=== PATIENT | male | born 1960 | race Caucasian/White ===

== ENCOUNTER 2016-11-13 19:10 | Inpatient (IN) | payer OTHER ==
[~2016-11-13] VITALS: Ht 170.2 cm; Wt 75.0 kg
[~2016-11-13 19:10] MED LIST: LEVAQUIN750 MG PO; NAPROSYN375 MG PO; NAPROXEN500 MG PO
[2016-11-13 19:55] LABS: EOSINOPHIL (%) 1.1 % (0-5); EOSINOPHIL COUNT 0.1 K/uL (0-0.3); HEMATOCRIT 43.4 % (38.0-50.0); IMMATURE GRANULOCYTE (%) 0.5 % (0.0-0.7); IMMATURE GRANULOCYTE COUNT 0.1 K/uL; INSTRUMENT ABS NEUTROPHIL CT 8.5 K/uL; LYMPHOCYTE COUNT 1.8 K/uL (1.0-2.8); MCHC 34.3 G/DL (30.0-36.0); MCV 96.2 FL (86-99); MONOCYTE (%) 11.2 % (3-12); MONOCYTE COUNT 1.3 K/uL (0-0.8); NEUTROPHIL (%) 71.8 % (45-76); NEUTROPHIL COUNT 8.5 K/uL (1.8-6.4); PLATELET COUNT 280 K/uL (156-360); RBC DIS.WIDTH-CV 12.3 % (11.8-14.6); RBC DIS.WIDTH-SD 43.6 % (39-53); RED BLOOD COUNT 4.51 M/uL (4.00-5.50); WHITE BLOOD COUNT 11.8 K/uL (4.1-10.2)
[2016-11-13 20:05] LABS: CHLORIDE 101 mEq/L (99-109); POTASSIUM 3.7 mEq/L (3.7-5.4); SODIUM 137 mEq/L (136-147)
[2016-11-13 20:06] LABS: GLUCOSE 131 mg/dL (70-99)
[2016-11-13 20:08] LABS: ANION GAP 13 MEQ/L (2-14)
[2016-11-13 20:10] LABS: GFR ESTIMATE (CALCULATED) > 59 mL/min/
[2016-11-13 20:11] LABS: UREA NITROGEN (BUN) 7 mg/dL (9-23)
[2016-11-13] MEDS ORDERED: TYLENOL EXTRA500 MG PO (20:31)
[2016-11-13 22:55] LABS: URIC ACID 6.8 mg/dL (3.1-9.2)
[2016-11-13 23:40] VITALS: BP 110/65
[2016-11-14 03:29] VITALS: BP 118/64
[2016-11-14 06:28] LABS: HEMATOCRIT 40.4 % (38.0-50.0); MCH 33.7 PG (29.0-34.0); MCHC 34.4 G/DL (30.0-36.0); MCV 98.1 FL (86-99); MEAN PLAT.VOLUME 9.9 uM^3 (9.0-12.4); PLATELET COUNT 260 K/uL (156-360); RBC DIS.WIDTH-CV 12.5 % (11.8-14.6); RBC DIS.WIDTH-SD 45.4 % (39-53); RED BLOOD COUNT 4.12 M/uL (4.00-5.50)
[2016-11-14 07:01] LABS: ALKALINE PHOSPHATASE 55 IU/L (3-129); ANION GAP 5 MEQ/L (2-14); CHLORIDE 104 MEQ/L (99-109); GFR ESTIMATE (CALCULATED) > 59 mL/min/; SAMPLE HEMOLYSIS CHECK 2; SAMPLE ICTERIC CHECK 0; SAMPLE LIPEMIA CHECK 0; SODIUM 138 MEQ/L (136-147); TOTAL BILIRUBIN 0.9 MG/DL (0.0-1.0); UREA NITROGEN (BUN) 11 mg/dL (9-23)
[2016-11-14 07:12] LABS: GLUCOSE 87 mg/dL (70-99); POTASSIUM 4.8 MEQ/L (3.7-5.4)
[2016-11-14 08:53] VITALS: BP 120/70
[2016-11-14 09:00] VITALS: BP 120/70
[2016-11-14 11:43] VITALS: BP 122/80
[2016-11-14 16:43] VITALS: BP 124/65
[2016-11-15 00:15] VITALS: BP 135/66
[2016-11-15 08:28] VITALS: BP 159/87
[2016-11-15 15:23] VITALS: BP 162/72
[2016-11-15 23:56] VITALS: BP 144/81
[2016-11-16 07:54] VITALS: BP 140/74
[2016-11-16] MEDS ORDERED: Colchicine,Colcrys PO (09:57)
[2016-11-16] MEDS ORDERED: TRAMADOL HCL50 MG PO (09:57)
== END 2016-11-16 12:17 | disposition home or self-care (01) | DRG 603 ==
LOC: EME 19:10 → 3EAST 21:50 → EDOF 21:50 → ENRESERV 21:51 → 3EAST 23:19
PROVIDERS: Emergency Medicine; Internal Medicine
DX: L03.116 Cellulitis of left lower limb (principal); I73.9 Peripheral vascular disease, unspecified; M71.22 Synovial cyst of popliteal space [Baker], left knee; L03.115 Cellulitis of right lower limb; M10.9 Gout, unspecified; F17.210 Nicotine dependence, cigarettes, uncomplicated
CPT/HCPCS: 80048; 80053; 83605; 84550; 85025; 85027; 87040; 93971; 99281; 99284; J0690; J1650; J1885; J2405; J2543; J2920; J7030; J7050

== ENCOUNTER → 2017-02-11 | Outpatient (CLI) | payer OTHER ==
[~2017-02-11] MED LIST changes: +Colchicine,Colcrys PO; +TRAMADOL HCL50 MG PO; +TYLENOL EXTRA500 MG PO
== END | disposition home or self-care (01) ==
LOC: CDC 15:27
DX: Z01.810 Encounter for preprocedural cardiovascular examination (principal); Z72.0 Tobacco use
CPT/HCPCS: 93000

== ENCOUNTER 2017-02-16 10:56 | Day surgery (SDC) | payer OTHER ==
[~2017-02-16] VITALS: Ht 170.2 cm; Wt 66.7 kg
[2017-02-16 12:04] VITALS: BP 130/87
[2017-02-16 12:29] LABS: HEMATOCRIT 41.1 % (38.0-50.0); MCH 31.9 PG (29.0-34.0); MCHC 33.6 G/DL (30.0-36.0); MCV 94.9 FL (86-99); MEAN PLAT.VOLUME 9.4 uM^3 (9.0-12.4); PLATELET COUNT 282 K/uL (156-360); RBC DIS.WIDTH-CV 13.2 % (11.8-14.6); RBC DIS.WIDTH-SD 47.2 % (39-53); RED BLOOD COUNT 4.33 M/uL (4.00-5.50); WHITE BLOOD COUNT 12.5 K/uL (4.1-10.2)
[2017-02-16 13:03] LABS: METH RESISTANT S AUREUS PCR NEGATIVE (NEGATIVE)
[2017-02-16 13:04] LABS: PROBE CHECK PASS; SPECIMEN PROCESSING CONTROL PASS
[2017-02-16 13:09] LABS: ANION GAP 7 MEQ/L (2-14); CHLORIDE 109 MEQ/L (99-109); GFR ESTIMATE (CALCULATED) > 59 mL/min/ (58.99-99999); GLUCOSE 92 mg/dL (70-99); POTASSIUM 4.2 MEQ/L (3.7-5.4); SAMPLE HEMOLYSIS CHECK 0; SAMPLE ICTERIC CHECK 0; SAMPLE LIPEMIA CHECK 0; SODIUM 140 MEQ/L (136-147); UREA NITROGEN (BUN) 8 mg/dL (9-23)
[2017-02-16 16:05] VITALS: BP 114/71
[2017-02-16 16:30] VITALS: BP 135/71
== END 2017-02-16 16:32 | disposition home or self-care (01) ==
LOC: SDC
PROVIDERS: Anesthesiology; Orthopaedic Surgery
PROC: 0SBD4ZZ Excision of Left Knee Joint, Percutaneous Endoscopic Approach (ICD-10-PCS; principal; 2017-02-16)
DX: M23.222 Derangement of posterior horn of medial meniscus due to old tear or injury, left knee (principal); M17.12 Unilateral primary osteoarthritis, left knee; M65.9 Synovitis and tenosynovitis, unspecified; F17.210 Nicotine dependence, cigarettes, uncomplicated
CPT/HCPCS: 80048; 85027; 87641; J0690; J1170; J2250; J2270; J2274; J2405; J3010